=== PATIENT | female | born 1975 | race Two or more races ===

== ENCOUNTER 2024-02-25 10:10 | Emergency (ER) | payer MEDICAID ==
[~2024-02-25] VITALS: Ht 162.6 cm; Wt 81.8 kg
[2024-02-25] MEDS ORDERED: IBUP-45 PO (10:13)
[2024-02-25 10:52] LABS: ANION GAP 11 mmol/L (8-16); CALCIUM, TOTAL 8.6 mg/dL (8.8-10.5); CARBON DIOXIDE 25 mmol/L (22-29); CHLORIDE 99 mmol/L (98-107); CREATININE 0.67 mg/dL (0.60-1.30); GLOMERULAR FILTR. RATE CALC > 60 mL/min (>60); GLUCOSE,RANDOM 135 mg/dL (70-110); POTASSIUM 3.6 mmol/L (3.5-5.1); SODIUM SERUM 135 mmol/L (136-145); UREA NITROGEN, BLOOD 10 mg/dL (7-18)
[2024-02-25 10:54] LABS: BASOPHILS % (AUTO) 0.2 % (0.0-2.0); EOSINOPHILS % (AUTO) 0.6 % (1.0-6.0); HEMATOCRIT 43.9 % (36-46); HEMOGLOBIN 14.6 g/dL (12.0-16.0); LYMPHOCYTES % (AUTO) 5.5 % (22.0-44.0); MEAN CORPUSCULAR HEMOGLOBIN 31.1 pg (26.0-34.0); MEAN CORPUSCULAR HGB CONC 33.3 G/dL (31.0-37.0); MEAN CORPUSCULAR VOLUME 93 fL (80-100); MONOCYTES # (AUTO) 0.7 K/uL (0.1-1.0); MONOCYTES % (AUTO) 3.9 % (2.0-9.0); NEUTROPHILS # (AUTO) 16.8 K/uL (1.8-7.7); PLATELET COUNT (AUTO) 310 K/uL (150-450); RED CELL DISTRIBUTION WIDTH 13.6 % (11.5-14.5); WHITE BLOOD COUNT (AUTO) 18.7 K/uL (4.5-11.0)
[2024-02-25 10:56] LABS: NEUTROPHILS % (AUTO) 89.8 % (40.0-70.0)
[2024-02-25] MEDS: ACETAMINOPHEN 500 MG TABLET PO ONE (11:03)
[2024-02-25 11:06] LABS: ALANINE AMINOTRANSFERASE 29 U/L (12-78); ALBUMIN 3.7 g/dL (3.4-5.0); ALKALINE PHOSPHATASE 71 U/L (46-116); ASPARTATE AMINOTRANSFERASE 15 U/L (15-37); BILIRUBIN,TOTAL 0.6 mg/dL (0.1-1.0); HCG,QUANTITATIVE 1 mIU/mL (0-6); LIPASE 22 U/L (16-77)
[2024-02-25 11:13] LABS: APPEARANCE,URINE CLEAR (CLEAR); BILIRUBIN,URINE NEGATIVE (NEGATIVE); COLOR,URINE LIGHT YELLOW (YELLOW); GLUCOSE, URINE (UA) NEGATIVE (NEGATIVE); KETONES,URINE NEGATIVE (NEGATIVE); LEUKOCYTE ESTERASE ,URINE NEGATIVE (NEGATIVE); NITRATE,URINE NEGATIVE (NEGATIVE); OCCULT BLOOD,URINE SMALL (NEGATIVE); PROTEIN,URINE NEGATIVE (NEGATIVE); SPECIFIC GRAVITIY, URINE 1.016 (1.003-1.030); UROBILINOGEN,URINE <=1.0 mg/dL (<=1.0)
[2024-02-25 11:17] LABS: BACTERIA,URINE None Seen /HPF (None Seen); SQUAMOUS EPITHELIAL CELL,UR Moderate /LPF (None Seen); WBC,URINE None Seen /HPF (0-5)
[2024-02-25 11:21] LABS: RBC MORPHOLOGY COMMENT NORMAL RBC MORPH
[2024-02-25] MEDS ORDERED: IOHEXOL 350 MG/ML 100 ML VIAL ONE (11:32)
[2024-02-25] MEDS ORDERED: SODIUM CHLORIDE 0.9% 100 ML ONE (11:32)
[2024-02-25] MEDS: CefTRIAXone 1 GM/DEXTROSE 50 ML IV ONE (14:22)
[2024-02-25 15:22] VITALS: TEMP 100.6
[2024-02-25 15:30] VITALS: BP 117/73; PULSE 88; RESP 18
== END 2024-02-25 15:50 | disposition home or self-care (01) ==
LOC: EMS 10:16
DX: R10.9 Unspecified abdominal pain (principal); K44.9 Diaphragmatic hernia without obstruction or gangrene; K43.9 Ventral hernia without obstruction or gangrene; K40.90 Unilateral inguinal hernia, without obstruction or gangrene, not specified as recurrent; D25.9 Leiomyoma of uterus, unspecified
CPT/HCPCS: 99285; 74177; 96365; 80053; 81001; 83690; 84702; 85025; 36415; J0696; Q9967; J7050